=== PATIENT | male | born 1945 | race Caucasian/White ===

== ENCOUNTER → 2019-04-11 | Outpatient (CLI) | payer MEDICARE ==
[~2019-04-11] MED LIST: ASPIRIN81 M2; ATENOLOL 100MG100 MG; CALCIUM 600 +1 EAC1; CIPROFLOXACIN500 M1 PO; FINASTERIDE5 MG; FISH OIL 1,001000 MG; FLEXERIL PO; LISINOPRIL20 MG; PREDNISONE 20 M20 M1; SIMVASTATIN20 MG; TAMSULOSIN HCL0.4 M1; TRAMADOL 50 MG50 MG; [UNRECOGNIZED DRUG - OTHER] PO
== END ==
LOC: M.ULTRA 09:15
DX: Z13.6 Encounter for screening for cardiovascular disorders (principal)

== ENCOUNTER → 2020-04-16 | Outpatient (CLI) | payer MEDICARE | LOC: M.ULTRA 11:08 | PROVIDERS: ATTEND Family Medicine | DX: N43.3 Hydrocele, unspecified (principal); N40.1 Benign prostatic hyperplasia with lower urinary tract symptoms; R35.1 Nocturia ==

== ENCOUNTER 2021-07-08 07:19 | Inpatient (IN) | payer MEDICARE ==
[~2021-07-08] VITALS: Ht 167.6 cm; Wt 79.4 kg
[~2021-07-08 07:19] MED LIST changes: +ASPIRIN EC81 M1 PO; -ASPIRIN81 M2; +FISH OIL 1,0001 EAC9 PO; -FISH OIL 1,001000 MG; -LISINOPRIL20 MG; +PRINIVIL40 MG PO; -SIMVASTATIN20 MG; -TAMSULOSIN HCL0.4 M1; +TAMSULOSIN HCL0.4 MG PO; +ZOCOR 20 MG TAB20 M1 PO
[2021-07-08 07:30] VITALS: BP 200/93
[2021-07-08] MEDS ORDERED: NEURONTIN 300M300 M2 PO (07:41)
[2021-07-08 08:37] LABS: HEMATOCRIT 44.1 % (42.0-52.0); HEMOGLOBIN 14.4 gm/dL (14.0-18.0); MCH 30.9 pg (26.0-34.0); MCHC 32.7 g/dL (28.0-37.0); MCV 94.7 fL (80.0-100.0); MPV 7.9 fl. (7.2-11.1); NUCLEATED RBCS 0 /100WBC; PLATELET COUNT* 279 thou/uL (150-400); RBC 4.66 mil/uL (4.50-6.00); RDW-CV 13.7 % (10.5-14.5); WBC 14.1 thou/uL (4.0-11.0)
[2021-07-08 08:45] LABS: CALCIUM 9.5 mg/dL (8.5-10.1); CREATININE 1.5 mg/dL (0.6-1.3); POTASSIUM 3.9 mmol/L (3.5-5.1)
[2021-07-08 08:50] LABS: TOTAL BILIRUBIN 0.3 mg/dL (<0.1-1.0); TOTAL PROTEIN 6.8 g/dL (6.4-8.2)
[2021-07-08 09:18] LABS: ABSOLUTE BASOPHILS 0.1 thou/uL (0.0-0.2); ABSOLUTE EOSINOPHILS 0.1 thou/uL (0.0-0.7); ABSOLUTE LYMPHOCYTES 0.8 thou/uL (0.8-5.3); ABSOLUTE MONOCYTES 0.7 thou/uL (0.0-1.2); ABSOLUTE NEUTROPHILS 12.3 thou/uL (1.6-8.1); PLATELET ESTIMATE ADEQUATE
[2021-07-08 13:45] VITALS: BP 169/76
[2021-07-08 18:34] VITALS: BP 169/76
[2021-07-09 05:05] LABS: CALCIUM 9.3 mg/dL (8.5-10.1); CREATININE 1.5 mg/dL (0.6-1.3); POTASSIUM 4.5 mmol/L (3.5-5.1)
[2021-07-09 05:08] LABS: MAGNESIUM 2.2 mg/dL (1.8-2.4); PHOSPHORUS* 3.9 mg/dL (2.5-4.9)
[2021-07-09 08:00] VITALS: BP 137/40
[2021-07-09 16:00] VITALS: BP 138/81
[2021-07-09 20:30] VITALS: BP 165/77
[2021-07-10 04:06] LABS: GLYCOHEMOGLOBIN (HGB A1C) 6.1 % (4.8-5.6)
[2021-07-10 07:54] VITALS: BP 179/87
[2021-07-10 16:39] VITALS: BP 176/76
[2021-07-10 19:40] VITALS: BP 177/85
[2021-07-11 08:23] VITALS: BP 189/97
[2021-07-11 16:48] VITALS: BP 188/95
[2021-07-11 20:00] VITALS: BP 183/77
[2021-07-12 05:27] LABS: CALCIUM 8.8 mg/dL (8.5-10.1); CREATININE 1.3 mg/dL (0.6-1.3); POTASSIUM 4.1 mmol/L (3.5-5.1)
[2021-07-12] MEDS ORDERED: TRIAMTERENE-HC1 EAC1 PO (09:04)
[2021-07-12] MEDS ORDERED: ULTRAM50 MG PO (09:07)
[2021-07-12] MEDS ORDERED: AUGMENTIN 875-1 EACH PO (09:50)
[2021-07-12 11:28] VITALS: BP 203/88
[2021-07-12 11:32] VITALS: BP 203/88
[2021-07-12 14:02] VITALS: BP 203/88
== END 2021-07-12 14:03 | disposition home health service (06) | DRG 872 ==
LOC: M.ERS 07:19 → M.3W 09:42 → M.TBA-ER 09:42 → M.3W 18:32
PROVIDERS: Emergency Medicine; ADMIT Internal Medicine; ATTEND Internal Medicine
DX: A41.9 Sepsis, unspecified organism (principal); L03.116 Cellulitis of left lower limb; E87.2 Acidosis; E44.0 Moderate protein-calorie malnutrition; Z20.822 Contact with and (suspected) exposure to COVID-19; N40.0 Benign prostatic hyperplasia without lower urinary tract symptoms; M65.872 Other synovitis and tenosynovitis, left ankle and foot; E78.5 Hyperlipidemia, unspecified; I12.9 Hypertensive chronic kidney disease with stage 1 through stage 4 chronic kidney disease, or unspecified chronic kidney disease; G62.9 Polyneuropathy, unspecified; M10.9 Gout, unspecified; R73.9 Hyperglycemia, unspecified; N18.30 Chronic kidney disease, stage 3 unspecified; Z68.28 Body mass index [BMI] 28.0-28.9, adult; Z88.2 Allergy status to sulfonamides